=== PATIENT | female | born 1975 | race American Indian/Alaskan Native ===

== ENCOUNTER 2019-04-05 08:36 | Emergency (ER) | payer MEDICAID ==
[2019-04-05 09:39] LABS: Basophils % (Auto) 0.7 % (0.0-1.8); Eosinophils # (Auto) 0.1 K/mm3 (0.0-0.4); Eosinophils % (Auto) 0.8 % (0.0-4.3); Hemoglobin 14.5 gm/dl (10.1-14.3); Lymphocytes # (Auto) 1.7 K/mm3 (1.2-5.4); Lymphocytes % (Auto) 27.7 % (13.4-35.0); Mean Corpuscular HGB Conc 34 % (30-34); Mean Corpuscular Volume 95 fl (79-97); Monocytes # (Auto) 0.5 K/mm3 (0.0-0.8); Monocytes % (Auto) 8.2 % (0.0-7.3); Platelet Count 146 K/mm3 (140-440); Red Blood Count 4.53 M/mm3 (3.65-5.03); Red Cell Distribution Width 13.9 % (13.2-15.2)
[2019-04-05 09:48] LABS: INR 0.93 (0.87-1.13)
[2019-04-05 09:49] LABS: Partial Thromboplastin Time 28.2 Sec. (24.2-36.6); Thrombin Time 15.1 Sec. (15.1-19.6)
[2019-04-05 09:51] LABS: Bacteria,Urine 1+ /HPF (Negative); Bilirubin,Urine NEG (Negative); Blood,Urine NEG (Negative); Color,Urine Yellow (Yellow); Mucus,Urine FEW /HPF; Protein,Urine <15 mg/dL mg/dL (Negative)
[2019-04-05 09:55] LABS: Creatine Kinase MB 1.5 ng/mL (0.0-4.0)
[2019-04-05 09:57] LABS: Alanine Aminotransferase 17 units/L (7-56); Albumin 4.1 g/dL (3.9-5); BUN/Creatinine Ratio 13; Blood Urea Nitrogen 9 mg/dL (7-17); Calcium 9.1 mg/dL (8.4-10.2); Hemolysis Index 6
[2019-04-05 09:58] LABS: HCG Qualitative,Urine Negative (Negative)
--- NOTE | 2019-04-05 10:01 | Cat Scan Report ---
CT HEAD WITHOUT CONTRAST INDICATION / CLINICAL INFORMATION: Stroke symptoms. TECHNIQUE: All CT scans at this location are performed using CT dose reduction for ALARA by means of automated e xposure control. COMPARISON: None available. FINDINGS: HEMORRHAGE: No evidence of intracranial hemorrhage or extra-axial fluid collection. EXTRA-AXIAL SPACES: Cortical sulci, sylvian fissures and basilar cisterns have an unremarkable appear ance. VENTRICULAR SYSTEM: The ventricular system is of normal size and configuration. CEREBRAL PARENCHYMA: No areas of abnormal brain parenchymal attenuation are identified. There is no i ndication of recent infarction. MIDLINE SHIFT OR HERNIATION: There is no mass effect. CEREBELLUM / BRAINSTEM: Brainstem and cerebellum have an unremarkable appearance. INTRACRANIAL VESSELS:No abnormalities are identified on this noncontrast head CT. ORBITS: visualized portions of the orbits have an unremarkable appearance. SOFT TISSUES of HEAD: No significant abnormality. CALVARIUM: Evaluation of bone windows reveals no abnormalities. PARANASAL SINUSES / MASTOID AIR CELLS: Paranasal sinuses are free from inflammatory mucosal disease. Mastoid air cells are normally pneumatized. ADDITIONAL FINDINGS: None. IMPRESSION: 1. Normal head CT. 2. No evidence of acute infarct or hemorrhage. A verbal report was given to Dr. Arvizu in the emergency department on 04/05/2019 at 9:55 AM EST Signer Name: Bayron Evans MD Signed: 04/05/2019 9:56 AM Workstation Name: [id number]
--- NOTE | 2019-04-05 10:10 | Cat Scan Report ---
CT cervical spine wo con INDICATION / CLINICAL INFORMATION: 43 years Female; Numbness right fingertips,neck and shoulder pain. TECHNIQUE: Axial CT images of the cervical spine were obtained. Sagittal and coronal reformatted images were pr oduced. All CT scans at this location are performed using CT dose reduction for ALARA by means of aut omated exposure control. COMPARISON: None available. FINDINGS: POST-SURGICAL CHANGES: None. ALIGNMENT: Straightening of the cervical spine noted, which may be related to patient positioning. VERTEBRAE: No signs of fracture. Vertebral bodies are grossly normal in height throughout. There is minimal uncinate hypertrophy on the right at C5-6, resulting in mild osseous foraminal narrowing. INTRAVERTEBRAL DISCS: There is disc space narrowing at C5-6. Mild disc bulge seen at this level. Over all, no significant canal stenosis appreciated. Some degree of foraminal disc disease on the right at C5-6 cannot be excluded. PARASPINAL SOFT TISSUES: No significant abnormality. ADDITIONAL FINDINGS: None. IMPRESSION: 1. Degenerative changes of the cervical spine as described above. Most marked findings appear to be a t C5-6. Please correlate with dermatomal distribution of patient's symptoms, if present. Signer Name: Marcio Denton MD, III Signed: 04/05/2019 10:06 AM Workstation Name: [id number]
--- NOTE | 2019-04-05 11:05 | Emergency Department Report ---
ED General Adult HPI - General Chief complaint: Neuro Symptoms/Deficit Stated complaint: NECK/BACK/R SHOULDER PAIN Time Seen by Provider: 04/05/19 10:21 Source: patient, RN notes reviewed Mode of arrival: Ambulatory Limitations: No Limitations - History of Present Illness Initial comments: During the history and physical examination, I am chaperoned by nurse rBianne Logan The patient reports that she is not , and reports that she has not deli verer given within the past [address], take metoprolol, 50 mg, poorly compliant with medication, has a history of hypertension The patient presents to the ER with 4-5 days of nontraumatic right paracervical neck pain, pain that moves down the right upper extremity. There is no weakness. There is no headache. There is no midline spinal pain. There is no recent trauma, motor vehicle accident, and there is no recent chiropractic manipulation. There is no severe headache, neck pain, there is no chest pain or abdominal pain, there are no DVT or pulmonary embolism risk factors, there are no lower extremity complaints, and there is no bladder or bowel retention or incontinence or saddle anesthesia. -: Gradual, days(s) Location: neck Radiation: extremity Quality: burning Consistency: intermittent Improves with: rest Worsens with: movement - Related Data Previous Rx's Medication Instructions Recorded Last Taken Type Acetaminophen [Non-Aspirin Extra 500 mg PO Q6HR PRN #30 tablet 04/05/19 Unknown Rx Strength] Ibuprofen [Motrin] 600 mg PO Q8H PRN #30 tablet 04/05/19 Unknown Rx Allergies Allergy/AdvReac Type Severity Reaction Status Date / Time No Known Allergies Allergy Unverified 04/05/19 08:47 ED Review of Systems ROS: Stated complaint: NECK/BACK/R SHOULDER PAIN Other details as noted in HPI Constitutional: denies: fever, malaise Eyes: denies: eye discharge ENT: denies: congestion Respiratory: denies: wheezing Cardiovascular: denies: syncope Gastrointestinal: denies: abdominal pain Musculoskeletal: arthralgia, myalgia Skin: denies: lesions Neurological: paresthesias. denies: weakness Hematological/Lymphatic: denies: easy bleeding ED Past Medical Hx - Past Medical History Previous Medical History?: Yes Hx Hypertension: Yes - Surgical History Past Surgical History?: No - Social History Smoking Status: Never Smoker Substance Use Type: None - Medications Home Medications: Home Medications Medication Instructions Recorded Confirmed Last Taken Type Acetaminophen [Non-Aspirin Extra 500 mg PO Q6HR PRN #30 tablet 04/05/19 Unknown Rx Strength] Ibuprofen [Motrin] 600 mg PO Q8H PRN #30 tablet 04/05/19 Unknown Rx ED Physical Exam - General Limitations: No Limitations General appearance: alert, in no apparent distress - Head Head exam: Present: atraumatic, normocephalic - Eye Eye exam: Present: normal appearance, PERRL, EOMI, other (visual acuity intact to finger counting in color perception out of close distance). Absent: nystagmus - ENT ENT exam: Present: normal exam, normal orophraynx, mucous membranes moist, normal external ear exam - Neck Neck exam: Present: normal inspection, full ROM. Absent: tenderness, meningismus - Respiratory Respiratory exam: Present: normal lung sounds bilaterally. Absent: respiratory distress - Cardiovascular Cardiovascular Exam: Present: regular rate, normal rhythm, normal heart sounds. Absent: bradycardia, tachycardia, irregular rhythm, systolic murmur, diastolic murmur, rubs, gallop - GI/Abdominal GI/Abdominal exam: Present: soft. Absent: distended, tenderness, guarding, rebound, rigid, pulsatile mass - Extremities Exam Extremities exam: Present: normal inspection, full ROM, other (2+ pulses noted in the bilateral upper and lower extremities. The pelvis is stable. There is no long bony tenderness. The muscular compartments are soft. There is no redness, pus, streaking or erythema.). Absent: pedal edema, joint swelling, calf tenderness - Back Exam Back exam: Present: normal inspection, full ROM, paraspinal tenderness (there is reproducible right sided paracervical tenderness. There is no midline cervical spine tenderness. There is no carotid bruit). Absent: tenderness, CVA tenderness (R), CVA tenderness (L), vertebral tenderness - Neurological Exam Neurological exam: Present: alert, oriented X3, normal gait, other (there is no facial droop. The tongue is midline. Extraocular movements are intact bilaterally. Speaking in full sentences. Hearing is grossly intact. 5 out of 5 strength bilateral upper and lower extremities. Sensation is intact to light touch bilateral upper and lower extremities.). Absent: motor sensory deficit (sensation is intact to light touch, pinch, proprioception in the bilateral upper and lower extremities) - Psychiatric Psychiatric exam: Present: normal affect, normal mood - Skin Skin exam: Present: warm, dry, intact, normal color. Absent: rash ED Course Vital Signs 04/05/19 04/05/19 04/05/19 08:54 12:13 12:28 Temperature 97.6 F Pulse Rate 94 H Respiratory 20 16 Rate Blood Pressure 220/113 Blood Pressure 171/109 [Left] O2 Sat by Pulse 99 99 Oximetry ED Medical Decision Making - Lab Data Result diagrams: 04/05/19 09:28 04/05/19 09:28 Vital Signs 04/05/19 04/05/19 04/05/19 08:54 12:13 12:28 Temperature 97.6 F Pulse Rate 94 H Respiratory 20 16 Rate Blood Pressure 220/113 Blood Pressure 171/109 [Left] O2 Sat by Pulse 99 99 Oximetry 04/05/19 13:55 Temperature Pulse Rate 66 Respiratory 16 Rate Blood Pressure Blood Pressure 172/106 [Left] O2 Sat by Pulse 99 Oximetry Lab Results 04/05/19 04/05/19 04/05/19 Range/Units 09:28 09:28 09:28 WBC 6.0 (4.5-11.0) K/mm3 RBC 4.53 (3.65-5.03) M/mm3 Hgb 14.5 H (10.1-14.3) gm/dl Hct 43.0 H (30.3-42.9) % MCV 95 (79-97) fl MCH 32 (28-32) pg MCHC 34 (30-34) % RDW 13.9 (13.2-15.2) % Plt Count 146 (140-440) K/mm3 Lymph % (Auto) 27.7 (13.4-35.0) % [place] % (Auto) 8.2 H (0.0-7.3) % Eos % (Auto) 0.8 (0.0-4.3) % Baso % (Auto) 0.7 (0.0-1.8) % Lymph # 1.7 (1.2-5.4) K/mm3 [place] # 0.5 (0.0-0.8) K/mm3 Eos # 0.1 (0.0-0.4) K/mm3 Baso # 0.0 (0.0-0.1) K/mm3 Seg Neutrophils % 62.6 (40.0-70.0) % Seg Neutrophils # 3.7 (1.8-7.7) K/mm3 PT 12.6 (12.2-14.9) Sec. INR 0.93 (0.87-1.13) APTT 28.2 (24.2-36.6) Sec. Thrombin Time 15.1 (15.1-19.6) Sec. Sodium 141 (137-145) mmol/L Potassium 4.3 (3.6-5.0) mmol/L Chloride 104.3 (98-107) mmol/L Carbon Dioxide 24 (22-30) mmol/L Anion Gap 17 mmol/L BUN 9 (7-17) mg/dL Creatinine 0.7 (0.7-1.2) mg/dL Estimated GFR > 60 ml/min BUN/Creatinine Ratio 13 % Glucose 128 H (65-100) mg/dL Calcium 9.1 (8.4-10.2) mg/dL Total Bilirubin 0.50 (0.1-1.2) mg/dL AST 13 (5-40) units/L ALT 17 (7-56) units/L Alkaline Phosphatase 106 (35-129) units/L Total Creatine Kinase 67 (30-135) units/L CK-MB (CK-2) 1.5 (0.0-4.0) ng/mL CK-MB (CK-2) Rel Index 2.2 (0-4) Troponin T < 0.010 (0.00-0.029) ng/mL Total Protein 7.2 (6.3-8.2) g/dL Albumin 4.1 (3.9-5) g/dL Albumin/Globulin Ratio 1.3 % Urine Color (Yellow) Urine Turbidity (Clear) Urine pH (5.0-7.0) Ur Specific [place] (1.003-1.030) Urine Protein (Negative) mg/dL Urine Glucose (UA) (Negative) mg/dL Urine Ketones (Negative) mg/dL Urine Blood (Negative) Urine Nitrite (Negative) Urine Bilirubin (Negative) Urine Urobilinogen (<2.0) mg/dL Ur Leukocyte Esterase (Negative) Urine WBC (Auto) (0.0-6.0) /HPF Urine RBC (Auto) (0.0-6.0) /HPF U Epithel Cells (Auto) (0-13.0) /HPF Urine Bacteria (Auto) (Negative) /HPF Urine Mucus /HPF Urine HCG, Qual (Negative) 04/05/19 Range/Units 09:31 WBC (4.5-11.0) K/mm3 RBC (3.65-5.03) M/mm3 Hgb (10.1-14.3) gm/dl Hct (30.3-42.9) % MCV (79-97) fl MCH (28-32) pg MCHC (30-34) % RDW (13.2-15.2) % Plt Count (140-440) K/mm3 Lymph % (Auto) (13.4-35.0) % [place] % (Auto) (0.0-7.3) % Eos % (Auto) (0.0-4.3) % Baso % (Auto) (0.0-1.8) % Lymph # (1.2-5.4) K/mm3 [place] # (0.0-0.8) K/mm3 Eos # (0.0-0.4) K/mm3 Baso # (0.0-0.1) K/mm3 Seg Neutrophils % (40.0-70.0) % Seg Neutrophils # (1.8-7.7) K/mm3 PT (12.2-14.9) Sec. INR (0.87-1.13) APTT (24.2-36.6) Sec. Thrombin Time (15.1-19.6) Sec. Sodium (137-145) mmol/L Potassium (3.6-5.0) mmol/L Chloride (98-107) mmol/L Carbon Dioxide (22-30) mmol/L Anion Gap mmol/L BUN (7-17) mg/dL Creatinine (0.7-1.2) mg/dL Estimated GFR ml/min BUN/Creatinine Ratio % Glucose (65-100) mg/dL Calcium (8.4-10.2) mg/dL Total Bilirubin (0.1-1.2) mg/dL AST (5-40) units/L ALT (7-56) units/L Alkaline Phosphatase (35-129) units/L Total Creatine Kinase (30-135) units/L CK-MB (CK-2) (0.0-4.0) ng/mL CK-MB (CK-2) Rel Index (0-4) Troponin T (0.00-0.029) ng/mL Total Protein (6.3-8.2) g/dL Albumin (3.9-5) g/dL Albumin/Globulin Ratio % Urine Color Yellow (Yellow) Urine Turbidity Slightly-cloudy (Clear) Urine pH 7.0 (5.0-7.0) Ur Specific [place] 1.017 (1.003-1.030) Urine Protein <15 mg/dl (Negative) mg/dL Urine Glucose (UA) Neg (Negative) mg/dL Urine Ketones Neg (Negative) mg/dL Urine Blood Neg (Negative) Urine Nitrite Neg (Negative) Urine Bilirubin Neg (Negative) Urine Urobilinogen 4.0 (<2.0) mg/dL Ur Leukocyte Esterase Mod (Negative) Urine WBC (Auto) 45.0 H (0.0-6.0) /HPF Urine RBC (Auto) 5.0 (0.0-6.0) /HPF U Epithel Cells (Auto) 20.0 H (0-13.0) /HPF Urine Bacteria (Auto) 1+ (Negative) /HPF Urine Mucus Few /HPF Urine HCG, Qual Negative (Negative) - EKG Data -: EKG Interpreted by Sc - EKG Data 04/05/19 14:02 There is no prior EKG available for comparison. EKG shows a sinus rhythm, 88 bpm, normal axis, high left ventricular voltage, motion artifact, there is no endorsement of chest pain, the EKG is abnormal, it is not consistent with stemi - Radiology Data Radiology results: report reviewed, image reviewed Print Report Referring Physician: BHARGAV ARVIZU Patient Name: CALEB STERN Date of : 1975 Sex: Female Report Date: 2019-04-05 Report Status: Finalized Findings [facility] [address] [id number] Cat Scan Report Signed Patient: CALEB STERN MR#: [id number] : 1975 Acct:[id number] Age/Sex: 43 / F ADM Date: 04/05/19 Loc: ED Attending Dr: Ordering Physician: BHARGAV ARVIZU MD Date of Service: 04/05/19 Procedure(s): CT cervical spine wo con Accession Number(s): [id number] cc: BHARGAV ARVIZU MD CT cervical spine wo con INDICATION / CLINICAL INFORMATION: 43 years Female; Num bness right fingertips,neck and shoulder pain. TECHNIQUE: Axial CT images of the cervical spine were obtained. Sagittal and coronal reformatted images were produced. All CT scans at this location are performed using CT dose reduction for ALARA by means of automated exposure control. COMPARISON: None available. FINDINGS: POST-SURGICAL CHANGES: None. ALIGNMENT: Straightening of the cervical spine noted, which may be related to patient positioning. VERTEBRAE: No signs of fracture. Vertebral bodies are grossly normal in height throughout. There is minimal uncinate hypertrophy on the right at C5-6, resulting in mild osseous foraminal narrowing. INTRAVERTEBRAL DISCS: There is disc space narrowing at C5- 6. Mild disc bulge seen at this level. Overall, no significant canal stenosis appreciated. Some degree of foraminal disc disease on the right at C5-6 cannot be excluded. PARASPINAL SOFT TISSUES: No significant abnormality. ADDITIONAL FINDINGS: None. IMPRESSION: 1. Degenerative changes of the cervical spine as described above. Most marked findings appear to be at C5-6. Please correlate with dermatomal distribution of patient's symptoms, if present. Signer Name: Marcio Denton MD, III Signed: 04/05/2019 10:06 AM Workstation Name: [id number] Transcribed By: HR Dictated By: Marcio Denton MD Electronically Authenticated By: Marcio Denton MD Signed Date/Time: 04/05/19 1006 DD/ 1001 TD/TT: Print Report Referring Physician: BHARGAV ARVIZU Patient Name: CALEB STERN Date of : 1975 Sex: Female Report Date: 2019-04-05 Report Status: Finalized Findings [facility] [address] [place] [address] Cat Scan Report Signed Patient: CALEB STERN MR#: [id number] : 1975 Acct:[id number] Age/Sex: 43 / F ADM Date: 04/05/19 Loc: ED Attending Dr: Ordering Physician: BHARGAV ARVIZU MD Date of Service: 04/05/19 Procedure(s): CT head/brain wo con Accession Number(s): [id number] cc: BHARGAV ARVIZU MD CT HEAD WITHOUT CONTRAST INDICATION / CLINICAL INFORMATION: Stroke symptoms. TECHNIQUE: All CT scans at this location are performed using CT dose reduction for ALARA by means of automated exposure control. COMPARISON: None available. FINDINGS: HEMORRHAGE: No evidence of intracranial hemorrhage or extra-axial fluid collection. EXTRA-AXIAL SPACES: Cortical sulci, sylvian fissures and basilar cisterns have an unremarkable appearance. VENTRICULAR SYSTEM: The ventricular system is of normal size and configuration. CEREBRAL PARENCHYMA: No areas of abnormal brain parenchymal attenuation are identified. There is no indication of recent infarction. MIDLINE SHIFT OR HERNIATION: There is no mass effect. CEREBELLUM / BRAINSTEM: Brainstem and cerebellum have an unremarkable appearance. INTRACRANIAL VESSELS:No abnormalities are identified on this noncontrast head CT. ORBITS: visualized portions of the orbits have an unremarkable appearance. SOFT TISSUES of HEAD: No significant abnormality. CALVARIUM: Evaluation of bone windows reveals no abnormalities. PARANASAL SINUSES / MASTOID AIR CELLS: Paranasal sinuses are free from inflammatory mucosal disease. Mastoid air cells are normally pneumatized. ADDITIONAL FINDINGS: None. IMPRESSION: 1. Normal head CT. 2. No evidence of acute infarct or hemorrhage. A verbal report was given to Dr. Arvizu in the emergency department on 04/05/2019 at 9:55 AM EST Signer Name: Maryan Olmedo MD Signed: 04/05/2019 9:56 AM Workstation Name: [id number] Transcribed By: REF Dictated By: MARYAN OLMEDO MD Electronically Authenticated By: MARYAN OLMEDO MD Signed Date/Time: 04/05/1956 DD/ - Medical Decision Making Differential diagnosis, including not limited to: Cervical radiculopathy, hypertension which is not symptomatic, medication noncompliance Assessment and plan: 43-year-old female with right upper extremity radicular pain, full range of motion in the bilateral upper and lower extremities, sensation intact to light touch, pinch and proprioception in the bilateral upper and lower extremities, neurovascularly intact, with incidental hypertension likely secondary to medication noncompliance. Hypertension improved, she is otherwise afebrile with reassuring vital signs, and has a benign physical examination. Patient counseled to follow up with outpatient primary care doctor to participate in physical therapy, emphasized the importance of medication compliance, patient observed in the ER for hours without clinical decompensation, and is suitable for discharge with outpatient follow-up time. Critical care attestation.: If time is entered above; I have spent that time in minutes in the direct care of this critically ill patient, excluding procedure time. ED Disposition Clinical Impression: Radicular pain in right arm, Elevated blood pressure reading Disposition: DC- TO HOME OR SELFCARE Is pt being admited?: No Does the pt Need Aspirin: No Condition: Stable Instructions: Cervical Radiculopathy (ED) Additional Instructions: Rest, avoid heavy lifting, and avoid strenuous physical activities. Participate in physical activities as tolerated. Follow up with a primary care doctor, neurologist or spine/neurosurgeon within the next 5-7 days. Patient will likely need to initiate outpatient physical therapy. Please take the pain medications as needed and/or directed. Pinched nerve/radiculopathy symptoms sometimes take days, weeks or even months to resolve. Please return to the emergency room right away with new pain, worsened pain, migration of pain, sensation of weakness, or new, worsened or different symptoms not present on the initial emergency room evaluation. Please make certain to remain compliant with hypertension medication, such as metoprolol. Long-term complications of hypertension and elevated blood pressure increased risk for heart attack, stroke, which are risk factors for , disability, paralysis, and loss of quality of life. Follow-up with her primary care doctor for elevated blood pressure within the next 4-6 weeks. Please avoid consumption of caffeine and stimulants Referrals: GABBIE VILLATORO MD [Staff Physician] - 3-5 Days BRODY GILMAN MD [Referring] - 3-5 Days ANA PEARL MD [Staff Physician] - 3-5 Days KIM EMMANUEL MD [Staff Physician] - 3-5 Days [facility] [Provider Group] - 3-5 Days
[2019-04-05] MEDS: METOPROLOL TARTRATE 50 MG TAB PO ONE (11:52)
[2019-04-05] MEDS: ACETAMINOPHEN 325 MG TAB PO ONE (11:52)
[2019-04-05] MEDS: IBUPROFEN 600 MG TAB PO ONE (11:52)
[2019-04-05 13:58] VITALS: BP 172/106
== END 2019-04-05 14:26 | disposition home or self-care (01) ==
LOC: ED 08:36
DX: M79.601 Pain in right arm (principal); R03.0 Elevated blood-pressure reading, without diagnosis of hypertension; I10 Essential (primary) hypertension; Z79.1 Long term (current) use of non-steroidal anti-inflammatories (NSAID); Z79.899 Other long term (current) drug therapy
CPT/HCPCS: 36415; 70450; 72125; 80053; 81001; 81025; 82550; 82553; 82962; 84484; 85025; 85610; 85670; 85730; 87086; 93005; 93010

== ENCOUNTER 2020-07-14 11:26 | Emergency (ER) | payer MEDICAID ==
[2020-07-14 11:36] VITALS: BP 186/89
[2020-07-14 13:28] LABS: Bilirubin,Urine NEG (Negative); Blood,Urine NEG (Negative); Color,Urine Yellow (Yellow); Mucus,Urine FEW /HPF; Protein,Urine <15 mg/dL mg/dL (Negative)
[2020-07-14 13:29] LABS: HCG Qualitative,Urine Negative (Negative)
== END 2020-07-14 13:25 ==
LOC: ED 11:26
DX: R10.2 Pelvic and perineal pain (principal); Z53.21 Procedure and treatment not carried out due to patient leaving prior to being seen by health care provider
CPT/HCPCS: 81001; 81025

== ENCOUNTER 2020-08-29 20:12 | Emergency (ER) | payer MEDICAID ==
[2020-08-29 21:54] LABS: Bacteria,Urine 1+ /HPF (Negative); Bilirubin,Urine NEG (Negative); Blood,Urine NEG (Negative); Color,Urine Yellow (Yellow); Mucus,Urine FEW /HPF; Protein,Urine <15 mg/dL mg/dL (Negative)
[2020-08-29 21:55] LABS: HCG Qualitative,Urine Negative (Negative)
[2020-08-29] MEDS ORDERED: LIDOCAINE-MPF (1%) 10 MG/1 ML VIAL 5 ML INFILTRATI ONE (22:51)
--- NOTE | 2020-08-29 23:12 | Emergency Department Report ---
ED Female HPI - General Chief complaint: Urogenital-Female Stated complaint: PELVIC/BACK PAIN Time Seen by Provider: 08/29/20 20:25 Source: patient Mode of arrival: Ambulatory Limitations: No Limitations - History of Present Illness Initial comments: Patient is a 45-year-old female presents emergency room complaints of pelvic pain and lower back pain that began 2 weeks ago. Patient reports that she had unprotected intercourse with her partner and that the condom broke during intercourse. She states that she has concerns for STDs. She states that she has vaginal itching, vaginal discharge with odor. She denies any abdominal pain, fever, nausea, vomiting, diarrhea, dysuria, urinary symptoms, vaginal bleeding, vaginal lesions. Past medical history of hypertension and CAD with stents. No allergies to medications. Last menstrual cycle a week ago. - Related Data Previous Rx's Medication Instructions Recorded Last Taken Type Acetaminophen [Non-Aspirin Extra 500 mg PO Q6HR PRN #30 tablet 04/05/19 Unknown Rx Strength] Ibuprofen [Motrin] 600 mg PO Q8H PRN #30 tablet 04/05/19 Unknown Rx Doxycycline Hyclate [Doxycycline 100 mg PO BID 7 Days #14 tab 08/29/20 Unknown Rx Hyclate TAB] metroNIDAZOLE [Flagyl] 500 mg PO BID 7 Days #14 tab 08/29/20 Unknown Rx Allergies Allergy/AdvReac Type Severity Reaction Status Date / Time No Known Allergies Allergy Unverified 04/05/19 08:47 ED Review of Systems ROS: Stated complaint: PELVIC/BACK PAIN Other details as noted in HPI Comment: All other systems reviewed and negative ED Past Medical Hx - Past Medical History Hx Hypertension: Yes - Surgical History Hx Coronary Stent: Yes - Social History Smoking Status: Never Smoker Substance Use Type: None - Medications Home Medications: Home Medications Medication Instructions Recorded Confirmed Last Taken Type Acetaminophen [Non-Aspirin Extra 500 mg PO Q6HR PRN #30 tablet 04/05/19 Unknown Rx Strength] Ibuprofen [Motrin] 600 mg PO Q8H PRN #30 tablet 04/05/19 Unknown Rx Doxycycline Hyclate [Doxycycline 100 mg PO BID 7 Days #14 tab 08/29/20 Unknown Rx Hyclate TAB] metroNIDAZOLE [Flagyl] 500 mg PO BID 7 Days #14 tab 08/29/20 Unknown Rx ED Physical Exam - General Limitations: No Limitations General appearance: alert, in no apparent distress - Head Head exam: Present: atraumatic, normocephalic - Eye Eye exam: Present: normal appearance - ENT ENT exam: Present: mucous membranes moist - Respiratory Respiratory exam: Present: normal lung sounds bilaterally. Absent: respiratory distress, wheezes, rales, rhonchi, stridor, chest wall tenderness, accessory muscle use, decreased breath sounds, prolonged expiratory - Cardiovascular Cardiovascular Exam: Present: regular rate, normal rhythm, normal heart sounds. Absent: systolic murmur, diastolic murmur, rubs, gallop - GI/Abdominal GI/Abdominal exam: Present: soft, normal bowel sounds. Absent: distended, tenderness, guarding, rebound, rigid - External exam: Absent: erythema, swelling, lesions, lacerations, ecchymosis, bleeding Speculum exam: Present: vaginal discharge (white), cervical discharge (white), other (addiction therapist: ISMAEL storey). Absent: erythema, vaginal bleeding, foreign body, tissue, laceration Bi-manual exam: Present: normal bi-manual exam. Absent: cervical motion tendernes, adnexal tenderness, adnexal mass - Neurological Exam Neurological exam: Present: alert, oriented X3 - Psychiatric Psychiatric exam: Present: normal affect, normal mood - Skin Skin exam: Present: warm, dry, intact ED Course Vital Signs 08/29/20 08/29/20 20:19 23:30 Temperature 98.5 F 98.2 F Pulse Rate 96 H 77 Respiratory 18 16 Rate Blood Pressure 156/93 Blood Pressure 184/97 [Left] O2 Sat by Pulse 100 100 Oximetry ED Medical Decision Making - Lab Data Lab Results 08/29/20 Range/Units Unknown Urine Color Yellow (Yellow) Urine Turbidity Clear (Clear) Urine pH 6.0 (5.0-7.0) Ur Specific [place] 1.023 (1.003-1.030) Urine Protein <15 mg/dl (Negative) mg/dL Urine Glucose (UA) Neg (Negative) mg/dL Urine Ketones Neg (Negative) mg/dL Urine Blood Neg (Negative) Urine Nitrite Neg (Negative) Urine Bilirubin Neg (Negative) Urine Urobilinogen 4.0 (<2.0) mg/dL Ur Leukocyte Esterase Sm (Negative) Urine WBC (Auto) 4.0 (0.0-6.0) /HPF Urine RBC (Auto) 2.0 (0.0-6.0) /HPF U Epithel Cells (Auto) 5.0 (0-13.0) /HPF Urine Bacteria (Auto) 1+ (Negative) /HPF Urine Mucus Few /HPF Urine HCG, Qual Negative (Negative) - Medical Decision Making Patient is a 45-year-old female presents emergency room complaints of pelvic pain and lower back pain that began 2 weeks ago. Patient reports that she had unprotected intercourse with her partner and that the condom broke during intercourse. She states that she has concerns for STDs. She states that she has vaginal itching, vaginal discharge with odor. She denies any abdominal pain, fever, nausea, vomiting, diarrhea, dysuria, urinary symptoms, vaginal bleeding, vaginal lesions. Past medical history of hypertension and CAD with stents. No allergies to medications. Last menstrual cycle a week ago. Vitals are stable. Retail Coverage Merchandiser Lead pelvic examination shows white vaginal and cervical discharge, no CMT, no adnexal tenderness or masses. UA is within normal limits. Urine is negative. Wet prep shows evidence of bacterial vaginosis and trichomonas. G/C swab sent. Patient states that she would like prophyla ctic treatment for G/C. Patient given ceftriaxone IM and prescription for doxycycline. Patient given prescription for Flagyl. Advised patient to follow- up with medical records for results of her test which she has been treated for them. Advised patient Please take medication as prescribed. Please have any partners tested and treated as well. Avoid sexual intercourse. Please take probiotics and eat yogurt to avoid yeast infection from antibiotics. Please follow-up with the clinic or health department to have full STD panel. Return to emergency room for any new or worsening symptoms. Critical care attestation.: If time is entered above; I have spent that time in minutes in the direct care of this critically ill patient, excluding procedure time. ED Disposition Clinical Impression: Pelvic pain, Low back pain, Trichomonas vaginitis, Bacterial vaginosis Disposition: DC-01 TO HOME OR SELFCARE Is pt being admited?: No Does the pt Need Aspirin: No Condition: Stable Instructions: Bacterial Vaginosis (ED) Additional Instructions: Please take medication as prescribed. Please have any partners tested and treated as well. Avoid sexual intercourse. Please take probiotics and eat yogurt to avoid yeast infection from antibiotics. Please follow-up with the clinic or health department to have full STD panel. Return to emergency room for any new or worsening symptoms. Prescriptions: Doxycycline Hyclate [Doxycycline Hyclate TAB] 100 mg PO BID 7 Days #14 tab metroNIDAZOLE [Flagyl] 500 mg PO BID 7 Days #14 tab Referrals: your, primary care doctor [Other] - 2-3 Days your, rubber heel and sole press tender [Other] - 2-3 Days [facility] [Outside] - 2-3 Days Forms: STI Treatment and Prevention Time of Disposition: 23:10 Print Language: EAST [place]
[2020-08-29 23:31] VITALS: BP 184/97
== END 2020-08-29 23:34 | disposition home or self-care (01) ==
LOC: ED 20:12
DX: A59.01 Trichomonal vulvovaginitis (principal); N76.0 Acute vaginitis; B96.89 Other specified bacterial agents as the cause of diseases classified elsewhere; R10.2 Pelvic and perineal pain; M54.5 Low back pain; I10 Essential (primary) hypertension; Z98.890 Other specified postprocedural states; Z79.1 Long term (current) use of non-steroidal anti-inflammatories (NSAID); Z79.899 Other long term (current) drug therapy
CPT/HCPCS: 81001; 81025; 87210; 87591; 96372; 99284; J0696

== ENCOUNTER 2021-11-02 09:07 | Emergency (ER) | payer MEDICAID ==
[2021-11-02 09:22] VITALS: BP 198/95
--- NOTE | 2021-11-02 09:24 | Emergency Department Report ---
Stated Complaint: BACK AND PELVIC PAIN - HPI History of Present Illness: 46-year-old female reports left-sided pelvic pain left-sided low back pain for about 1 week. Patient denies vaginal bleeding, no vaginal discharge, no vaginal odor. Patient reports no concerns for STD. Patient does report frequent urination. Patient reports her pain is 6 out of 10. Patient reports that she has a UTI. - ROS Review of Systems: left pelvic Left back pain Frequent urination - Exam Vital Signs: Vital Signs 11/02/21 09:17 Temperature 98.9 F Pulse Rate 84 Respiratory 18 Rate Blood Pressure 198/95 [Left] O2 Sat by Pulse 100 Oximetry Physical Exam: Alert oriented x4. No respiratory distress nonlabored breathing Patient is ambulatory with no assistance. MSE screening note: Focused history and physical exam performed. Due to findings the following was ordered: MSE complete. Orders to be placed. Patient to be seen by another provider in the back. Triage complete. ED Disposition for MSE Condition: Stable
[2021-11-02 13:20] LABS: Bacteria,Urine 1+ /HPF (Negative); Mucus,Urine FEW /HPF
[2021-11-02 13:40] LABS: HCG Qualitative,Urine Negative (Negative)
[2021-11-02 13:41] LABS: Bilirubin,Urine Negative (Negative); Blood,Urine Negative (Negative); Color,Urine Yellow (Yellow)
[2021-11-02 13:42] LABS: Protein,Urine <15 mg/dL mg/dL (Negative)
[2021-11-02] MEDS ORDERED: CYCLOBENZAPRINE 10 MG TAB PO ONE (13:46)
[2021-11-02] MEDS ORDERED: KETOROLAC 60 MG/2 ML INJ IM ONE (13:46)
[2021-11-02] MEDS ORDERED: predniSONE 10 MG TAB PO ONE (13:46)
--- NOTE | 2021-11-02 14:19 | Emergency Department Report ---
ED Back Pain/Injury HPI - General Chief Complaint: Back Pain/Injury Stated Complaint: BACK AND PELVIC PAIN Time Seen by Provider: 11/02/21 12:44 Source: patient Limitations: No Limitations - History of Present Illness Initial Comments: This is a 46-year-old female nontoxic, well nourished in appearance, no acute signs of distress presents to the ED with c/o of lower back pain x several days. Patient stated that pain radiates to lower pelvic area. Patient denies any injuries or trauma. Denies any upper or mid abdominal pains. Denies any bladder or bowel instability. Patient denies any urinary symptoms. Denies any fever, chills, nausea, vomiting, headache, stiff neck, chest pain or shortness of breath. Patient denies any numbness or tingling. Patient denies being sexually active. Denies any vaginal discharge. Denies any allergies. MD Complaint: back pain -: days(s) Radiation: other (pelvic) Severity: mild Severity scale (0 -10): 8 Quality: aching Consistency: intermittent Improves With: immobilization Worsens With: movement Associated Symptoms: denies other symptoms. denies: confusion, weakness, chest pain, numbness, difficulty walking, cough, difficulty urinating, diaphoresis, incontinence, fever/chills, constipation, headaches, abdominal pain, loss of appetite, malaise, nausea/vomiting, rash, seizure, shortness of breath, syncope - Related Data Previous Rx's Medication Instructions Recorded Last Taken Type Acetaminophen [Non-Aspirin Extra 500 mg PO Q6HR PRN #30 tablet 04/05/19 Unknown Rx Strength] Ibuprofen [Motrin] 600 mg PO Q8H PRN #30 tablet 04/05/19 Unknown Rx Doxycycline Hyclate [Doxycycline 100 mg PO BID 7 Days #14 tab 08/29/20 Unknown Rx Hyclate TAB] metroNIDAZOLE [Flagyl] 500 mg PO BID 7 Days #14 tab 08/29/20 Unknown Rx Allergies Allergy/AdvReac Type Severity Reaction Status Date / Time No Known Allergies Allergy Verified 11/02/21 09:22 ED Review of Systems ROS: Stated complaint: BACK AND PELVIC PAIN Other details as noted in HPI Comment: All other systems reviewed and negative Constitutional: denies: chills, fever Eyes: denies: eye pain, eye discharge, vision change ENT: denies: ear pain, throat pain Respiratory: denies: cough, shortness of breath, wheezing Cardiovascular: denies: chest pain, palpitations Endocrine: no symptoms reported Gastrointestinal: other (pelvic pain). denies: abdominal pain, nausea, vomiting, diarrhea, constipation, hematemesis, melena, hematochezia Genitourinary: denies: urgency, dysuria, discharge Musculoskeletal: back pain. denies: joint swelling, arthralgia Skin: denies: rash, lesions Neurological: denies: headache, weakness, paresthesias Psychiatric: denies: anxiety, depression Hematological/Lymphatic: denies: easy bleeding, easy bruising ED Past Medical Hx - Past Medical History Hx Hypertension: Yes - Surgical History Hx Coronary Stent: Yes - Social History Smoking Status: Never Smoker Substance Use Type: None - Medications Home Medications: Home Medications Medication Instructions Recorded Confirmed Last Taken Type Acetaminophen [Non-Aspirin Extra 500 mg PO Q6HR PRN #30 tablet 04/05/19 Unknown Rx Strength] Ibuprofen [Motrin] 600 mg PO Q8H PRN #30 tablet 04/05/19 Unknown Rx Doxycycline Hyclate [Doxycycline 100 mg PO BID 7 Days #14 tab 08/29/20 Unknown Rx Hyclate TAB] metroNIDAZOLE [Flagyl] 500 mg PO BID 7 Days #14 tab 08/29/20 Unknown Rx ED Physical Exam - General Limitations: No Limitations General appearance: alert, in no apparent distress - Head Head exam: Present: atraumatic, normocephalic - Eye Eye exam: Present: normal appearance - Neck Neck exam: Present: normal inspection, full ROM. Absent: lymphadenopathy - Respiratory Respiratory exam: Present: normal lung sounds bilaterally. Absent: respiratory distress, wheezes, rales, rhonchi, stridor, chest wall tenderness, accessory muscle use, decreased breath sounds, prolonged expiratory - Cardiovascular Cardiovascular Exam: Present: regular rate, normal rhythm, normal heart sounds. Absent: bradycardia, tachycardia, irregular rhythm, systolic murmur, diastolic murmur, rubs, gallop - GI/Abdominal GI/Abdominal exam: Present: soft, normal bowel sounds. Absent: distended, tenderness, guarding, rebound, rigid, diminished bowel sounds - Extremities Exam Extremities exam: Present: normal inspection, full ROM - Back Exam Back exam: Present: normal inspection, full ROM, paraspinal tenderness (Bilateral lumbar paraspinal). Absent: tenderness, CVA tenderness (R), CVA tenderness (L), muscle spasm, vertebral tenderness, rash noted - Expanded Back Exam Expanded Back exam: Absent: saddle anesthesia Back exam: Negative Straight Leg Raising: Right, Left - Neurological Exam Neurological exam: Present: alert, oriented X3, normal gait - Psychiatric Psychiatric exam: Present: normal affect, normal mood - Skin Skin exam: Present: warm, dry, intact, normal color. Absent: rash ED Course Vital Signs 11/02/21 09:17 Temperature 98.9 F Pulse Rate 84 Respiratory 18 Rate Blood Pressure 198/95 [Left] O2 Sat by Pulse 100 Oximetry - Reevaluation(s) Reevaluation #1: 11/02/21 14:18 Patient is speaking in full sentences with no signs of distress noted. ED Medical Decision Making - Lab Data Lab Results 11/02/21 11/02/21 Range/Units 13:00 Unknown Urine Color Yellow (Yellow) Urine Turbidity Clear (Clear) Urine pH 5.0 (5.0-7.0) Ur Specific [place] 1.015 (1.003-1.030) Urine Protein <15 mg/dl (Negative) mg/dL Urine Glucose (UA) Negative (Negative) mg/dL Urine Ketones Negative (Negative) mg/dL Urine Blood Negative (Negative) Urine Nitrite Negative (Negative) Ur Reducing Substances Not Reportable Urine Bilirubin Negative (Negative) Urine Ictotest Not Reportable Urine Urobilinogen 0.0 (<2.0) mg/dL Ur Leukocyte Esterase 1+ (Negative) Urine WBC (Auto) 3.0 (0.0-6.0) /HPF Urine RBC (Auto) 6.0 (0.0-6.0) /HPF U Epithel Cells (Auto) 16.0 H (0-13.0) /HPF Urine Bacteria (Auto) 1+ (Negative) /HPF Urine Mucus Few /HPF Urine HCG, Qual Negative (Negative) - Medical Decision Making 46-year-old female that presents with lower back pain and pelvic pain. Patient is stable and was examined by me. UA has been obtained and patient is notified of the results with no questions noted by the patient. Labs has been ordered. After I entered the patient's room to review evaluate the patient patient was not there and as per almond sorter stated that patient eloped without telling anybody. As per almond sorter, tried to contact patient with unsuccessful attempts. Patient eloped without further evaluation, appropriate treatment and appropriate disposition. Critical care attestation.: If time is entered above; I have spent that time in minutes in the direct care of this critically ill patient, excluding procedure time. ED Disposition Clinical Impression: Pelvic pain Low back pain Qualifiers: Chronicity: unspecified Back pain laterality: unspecified Sciatica presence: unspecified whether sciatica present Qualified Code(s): M54.50 - Low back pain, unspecified Disposition: 07 LEFT AWOL/ELOPED Is pt being admited?: No Condition: Undetermined Time of Disposition: 14:20
[2021-11-02 14:57] LABS: Basophils % (Auto) 0.4 % (0.0-1.8); Eosinophils % (Auto) 0.5 % (0.0-4.3); Hematocrit 41.6 % (30.3-42.9); Hemoglobin 14.1 gm/dl (10.1-14.3); Lymphocytes # (Auto) 1.9 K/mm3 (1.2-5.4); Lymphocytes % (Auto) 24.2 % (13.4-35.0); Mean Corpuscular HGB Conc 34 % (30-34); Mean Corpuscular Volume 91 fl (79-97); Monocytes # (Auto) 0.4 K/mm3 (0.0-0.8); Monocytes % (Auto) 5.8 % (0.0-7.3); Platelet Count 159 K/mm3 (140-440); Red Blood Count 4.58 M/mm3 (3.65-5.03); Red Cell Distribution Width 13.9 % (13.2-15.2)
[2021-11-02 15:05] LABS: Alanine Aminotransferase 18 units/L (7-56); Albumin 4.5 g/dL (3.9-5); Blood Urea Nitrogen 8 mg/dL (7-17); Calcium 9.1 mg/dL (8.4-10.2); Hemolysis Index 3
[2021-11-02 15:12] LABS: BUN/Creatinine Ratio 11
== END 2021-11-02 14:20 | disposition left against medical advice (07) ==
LOC: ED 09:07
DX: R10.2 Pelvic and perineal pain (principal); M54.9 Dorsalgia, unspecified; Z53.21 Procedure and treatment not carried out due to patient leaving prior to being seen by health care provider
CPT/HCPCS: 36415; 80053; 81001; 81025; 85025; J1885; J7512